=== PATIENT | male | born 1950 | race Caucasian/White ===

== ENCOUNTER → 2025-01-19 | Outpatient (CLI) | payer MEDICARE, SELFPAY ==
[2025-01-19 19:14] LABS: PSA,Total- Diagnostic 9.22 ng/mL (0.00-4.00)
[2025-01-21 13:08] LABS: PSA, Free 1.57 ng/mL; PSA, Free % 15.4 % (.); PSA, Total Ultrasensitive 10.200 ng/mL (0.000-4.000)
== END | disposition home or self-care (01) ==
LOC: LAB 16:08
PROVIDERS: PCP Internal Medicine Infectious Disease; Referring Provider Nurse Practitioner; Visit Provider Nurse Practitioner
DX: R97.20 Elevated prostate specific antigen [PSA] (principal)
CPT/HCPCS: 36415; 84153; 84154

== ENCOUNTER → 2025-02-12 | Outpatient (CLI) | payer MEDICARE, SELFPAY ==
--- NOTE | 2025-02-12 07:47 | MRI_ITS ---
PROCEDURE: PELVIS W/WO CONTRAST, 02/12/2025 REASON FOR EXAM: ELEVATED PSA. PSA 9.22 on 01/19/2025 per technologist report. TECHNIQUE: Multisequence multiplanar MRI pelvis was performed with and without IV contrast. IV Contrast: 14 mL Clariscan COMPARISON: None FINDINGS: Variable overall mild motion limitation. Prostate size: 5.2 x 3.7 x 5.1 cm, estimated volume 51.0 mL. Per the above provided PSA, PSA density is 0.181 ng/mL. Transition zone: PI-RADS 2 findings. Peripheral Zone: Fairly prominent background changes favorable for prostatitis making delineation of additional discrete lesions on T2 somewhat challenging: *Lesion 1: RIGHT mid apical posteromedial peripheral zone, 0.6 cm (series 12, image 21).. *T2 score: 3. *DWI score: 3. *DCE: Positive. *Overall PI-RADS: 4. *Extracapsular extension:Capsular abutment without gross extracapsular extension. Neurovascular bundles: Unremarkable. Seminal vesicles: Unremarkable. Bladder: Underdistended and suboptimally evaluated. Appearance suggestive of chronic bladder outlet obstruction. Mild mass-effect by the enlarged prostate with slight intraluminal protrusion of exophytic transition zone parenchyma. Lymph nodes: Unremarkable. Bones: No destructive or frankly suspicious bony lesions identified on nondedicated evaluation. Other: Diverticulosis. Trace to small bilateral hydroceles. Bilateral presumed epididymal cysts. MRI/Pelvis W/WO Contrast IMPRESSION: 1. 0.6 cm PI-RADS 4 lesion in the RIGHT mid to apical posteromedial peripheral zone. Capsular abutment without gross extracapsular extension. 2. No overt pelvic lymphadenopathy. 3. Additional description as above. [facility]
--- OUTSIDE RECORDS SUMMARY | 2025-02-12 08:03 | XMS RPT_ITS | CCD ---
Author Organization [facility] Care Team Providers Care Director Of Vocational Guidance Name Role Phone Cody QUEZADA Admitting Unavailable Cody QUEZADA HENOK Primary Care Unavailable Cody QUEZADA Attending Unavailable MIGUEL A SALCEDO MD Consulting Unavailable PROVIDER, UNKNOWN Consulting Unavailable PROVIDER, UNKNOWN Consulting Unavailable PROVIDER, UNKNOWN Consulting Unavailable MIGUEL A SALCEDO MD Admitting Unavailable MIGUEL A SALCEDO MD Primary Care Unavailable MIGUEL A SALCEDO MD Consulting Unavailable MIGUEL A SALCEDO MD Attending Unavailable PROVIDER, UNKNOWN Consulting Unavailable PROVIDER, UNKNOWN Consulting Unavailable PROVIDER, UNKNOWN Consulting Unavailable Denisse FERREIRA, Dr. Perez Primary Care Provider [place]Ni Attending Provider [phone] [place] Referring Provider Miguel A Salcedo Primary Care Unavailable Ni Beck Attending Unavailable Ni Beck Referring Unavailable Lai Quezada Referring Unavailable Miguel A Salcedo Primary Care Unavailable Lai Quezada Attending Unavailable Problems Problem Classification Problem Date Documented Da te Episodic/Chronic Disorders of lipid metabolism (1 source) Pure hypercholesterole magda, unspecified; Translations: [Pure hypercholesterole magda, unspecified] Onset: 12-10-2024 Chronic Other screening for suspected conditions (not mental disorders or infectious disease) (6 sources) Elevated prostate specific antigen [PSA]; Translations: [Elevated prostate specific antigen [PSA]] Onset: 05-25-2024 Episodic Results Test Name Value Interpretation Reference Range Facil ity PSA Total+%Freeon 01-21-2025 PSA, FREE 1.57 ng/mL Normal N/A [facility] Comment on above: Result Comment: Vale PERSAUD methodology. Performed By: #### L 3110.0500, L501.9940 #### [facility] [address] [place], [address] (458) PSA, FREE % 15.4 Normal . [facility] Comment on above: Result Comment: The table below lists the probability of prostate cancer for men with non-suspicious CHRIS results and total PSA between 4 and 10 ng/mL, by patient age (Vasile et al, MICHELE 1998, 279:1542). % Free PSA 50-64 yr 65-75 yr 0.00-10.00% 56% 55% 10.01-15.00% 24% 35% 15.01-20.00% 17% 23% 20.01-25.00% 10% 20% >25.00% 5% 9% Please note: Vasile et al did not make specific recommendations regarding the use of percent free PSA for any other population of men. Performed at: [address] [id number] Marketing Intelligence Manager: Billy Cardenas PhD, Phone: [phone] Performed By: #### L 3110.0500, L501.9940 #### [facility] [address] [place], [address] (821) PSA, TOTAL ULTR 10.200 ng/mL Abnormal 0.000-4.000 [facility] Comment on above: Result Comment: Vale PERSAUD methodology. According to the [place] [employer], Serum PSA should decrease and remain at undetectable levels after radical prostatectomy. The AUA defines biochemical recurrence as an initial PSA value 0.200 ng/mL or greater followed by a subsequent confirmatory PSA value 0.200 ng/mL or greater. Values obtained with different assay methods or kits cannot be used interchangeably. Results cannot be interpreted as absolute evidence of the presence or absence of malignant disease. Performed By: #### L 3110.0500, L501.9940 #### [facility] [address] [place], [place], [phone] (092) PSA,Total- Diagnosticon 12-26 PSA, DIAGNOSTIC 9.22 ng/mL High 0.00-4.00 [facility] Comment on above: Result Comment: This test was performed using the [employer] tPSA method. Measured values of a patient??sample can vary depending on the testing procedure used. PSA values determined on patient samples by different testing procedures cannot be used interchangeably. If there is a change in PSA assays while monitoring therapy, sequential testing should be performed to confirm baseline values. Performed By: #### L 3110.0500, L501.9940 #### [facility] [address] [place], [address] Serum or plasma free prostat e specific antigen (PSA)/total PSA mass ratioOrdered By: Ni Beck on 01-19-2025 Free PSA/Total PSA [Mass fraction] 15.4 % . [facility] Comment on above: The table below list s the probability of prostate cancer formen with non-suspicious CHRIS results and total PSA between4 and 10 ng/mL, by patient age (Vasile et al, MICHELE 1998,279:1542). % Free PSA 50-64 yr 65-75 yr 0.00-10.00% 56% 55% 10.01-15.00% 24% 35% 15.01-20.00% 17% 23% 20.01-25.00% 10% 20% >25.00% 5% 9%Please note: Vasile et al did not make specific recommendations regarding the use of percent free PSA for any other population of men.Performed at: [facility] [id number] Director: Billy Cardenas PhD, Phone: [phone] CBC (NO DIFF)on 12-10-2024 CBC panel Auto (Bld) Normal [facility] Comment on above: Result Comment: CBC( WITHOUT DIFFERENTIAL) Performed By: #### 2 80744 #### [facility],[address] [place] [address] 32393 Erythrocyte distribution width (RBC) [Ratio] 16.5 % High 12.0 - 15.6 [facility] Comment on above: Performed By: #### 2 02444 #### [facility],[address] [place] [address] 09057 Hematocrit (Bld) [Volume fraction] 35.7 % Low 40.0 - 52.0 [facility] Comment on above: Performed By: #### 2 81035 #### [facility],[address] [place] [address] 63444 Hemoglobin (Bld) [Mass/Vol] 11.9 g/dL Low 13.0 - 17.5 [facility] Comment on above: Performed By: #### 2 60457 #### [facility],[address] [place] [address] 22427 MCH (RBC) [Entitic mass] 27 pg Normal 27 - 33 [facility] Comment on above: Performed By: #### 2 24142 #### [facility],[address] [place] [address] 12279 MCHC 33 X10 3 Normal 32 - 36 [facility] Comment on above: Performed By: #### 2 56851 #### [facility],[address] [place] [address] 50849 MCV (RBC) [Entitic vol] 81 fL Normal 81 - 98 [facility] Comment on above: Performed By: #### 2 84390 #### [facility],[address] [place] [address] 81210 PLATELET 423 x10EE3/UL Normal 150 - 450 [facility] Comment on above: Performed By: #### 2 62985 #### [facility],[address] [place] [address] 49373 Platelet mean volume (Bld) [Entitic vol] 7.0 fL Normal 6.4 - 10.5 [facility] Comment on above: Performed By: #### 2 48540 #### [facility],[address] [place] [address] 86196 RBC 4.40 x 10EE6/UL Low 4.50 - 6.00 [facility] Comment on above: Performed By: #### 2 25416 #### [facility],[address] [place] [address] 50493 WBC 5.5 x 10EE3/UL Normal 4.5 - 10.8 [facility] Comment on above: Performed By: #### 2 61347 #### [facility],[address] [place] [address] 54917 CMP with eGFRon 12-10-2024 AGE 74 years Normal [facility] Comment on above: Performed By: #### 2 52602 #### [facility],[address] [place] [address] Albumin [Mass/Vol] 3.7 g/dL Normal 3.4 - 5.0 [facility] Comment on above: Performed By: #### 2 29285 #### [facility],[address] [place] [address] Albumin/Globulin [Mass ratio] 1.1 {ratio} Normal 0.9 - 1.6 [facility] Comment on above: Performed By: #### 2 74261 #### [facility],[address] [place], [place] [id number] ALK PHOS 47 U/L Normal 46 - 116 [facility] Comment on above: Performed By: #### 2 11757 #### [facility],[address] [place] [address] 95974 ALT [Catalytic activity/Vol] 28 U/L Normal 16 - 63 [facility] Comment on above: Performed By: #### 2 96889 #### [facility],[address] [place] [address] 51283 Anion gap [Moles/Vol] 12 mmol/L Normal 10 - 20 [facility] Comment on above: Performed By: #### 2 96545 #### [facility],[address] [place] [address] 38777 AST [Catalytic activity/Vol] 23 U/L Normal 15 - 37 [facility] Comment on above: Performed By: #### 2 09856 #### [facility],[address] [place] [address] 57242 B/C RATIO 18 ratio Normal 0 - 30 [facility] Comment on above: Performed By: #### 2 58253 #### [facility],[address] [place] [address] 89336 Bilirubin [Mass/Vol] 0.7 mg/dL Normal 0.2 - 1.0 [facility] Comment on above: Performed By: #### 2 16729 #### [facility],[address] [place] [address] 04825 Calcium [Mass/Vol] 8.4 mg/dL Low 8.5 - 10.1 [facility] Comment on above: Performed By: #### 2 58353 #### [facility],[address] [place] [address] 19304 Chloride [Moles/Vol] 105 mmol/L Normal 98 - 107 [facility] Comment on above: Performed By: #### 2 60904 #### [facility],[address] [place], [place] [id number] CMP with eGFR Normal [facility] Comment on above: Result Comment: COMP REHENSIVE METABOLIC PANEL Performed By: #### 2 72400 #### [facility],[address] [place] [address] 72838 CO2 [Moles/Vol] 26.0 mmol/L Normal 21.0 - 32.0 [facility] Comment on above: Performed By: #### 2 26387 #### [facility],[address] [place] [address] 86988 Creatinine [Mass/Vol] 1.11 mg/dL Normal 0.70 - 1.30 [facility] Comment on above: Performed By: #### 2 37384 #### [facility],[address] [place] [address] 89637 GFR/1.73 sq M.predicted among non-blacks MDRD (S/P/Bld) [Vol rate/Area] mL/min/{1.73_m2} Normal 60 - 999 [facility] Comment on above: Performed By: #### 2 91235 #### [facility],[address] [place] [address] 19900 Result Comment: ACCO RDING TO THE NATIONAL KIDNEY DISEASE EDUCATION PROGRAM(NKDE), A NORMAL eGFR IS A VALUE GREATER THAN OR EQUAL TO 60 ML/MIN/1.73 SQ METERS. CHRONIC KIDNEY DISEASE: <60mL/MIN/1.73 SQ METERS KIDNEY FAILURE: <15mL/MIN/1.73 SQ METERS THIS TEST SHOULD ONLY BE USED FOR PATIENTS 18 YEARS OF AGE AND OLDER. Globulin (S) [Mass/Vol] 3.4 g/dL Normal 1.5 - 3.8 [facility] Comment on above: Performed By: #### 2 63365 #### [facility],[address] [place] [address] 42249 Glucose [Mass/Vol] 99 mg/dL Normal 74 - 106 [facility] Comment on above: Performed By: #### 2 23576 #### [facility],[address] [place], [place] [id number] Potassium [Moles/Vol] 4.4 mmol/L Normal 3.5 - 5.1 [facility] Comment on above: Performed By: #### 2 08821 #### [facility],[address] [place], [place] [id number] Protein [Mass/Vol] 7.1 g/dL Normal 6.4 - 8.2 [facility] Comment on above: Performed By: #### 2 72889 #### [facility],[address] [place] [address] 15866 Sodium [Moles/Vol] 139 mmol/L Normal 136 - 145 [facility] Comment on above: Performed By: #### 2 87425 #### [facility],[address] [place] [address] 05476 Urea nitrogen [Mass/Vol] 20 mg/dL High 7 - 18 [facility] Comment on above: Performed By: #### 2 39041 #### [facility],[address] [place], [place] [address] HEMOGLOBIN A1C (POM)on 12-10 Glucose [Mass/Vol] 111.2 mg/dL High 0.0 - 0.0 [facility] Comment on above: Result Comment: BLDo HEMOGLOBIN A1C REFERENCE RANGESBLDo Suggested Diagnosis HbA1c(%) HbA1C (mmol/mol Diabetic >/=6.5 >/=48 Prediabetes 5.7 - 6.4 39 - 47 Normal <5.7 <39 Performed By: #### 2 64705 #### [facility],[address] [place] [address] 01594 HbA1c (Bld) [Mass fraction] 5.5 % Normal 0.0 - 6.5 [facility] Comment on above: Performed By: #### 2 40148 #### [facility],[address] [place] [address] 22406 LIPID PROFILEon 12-10-2024 Cholesterol [Mass/Vol] 233 mg/dL Normal 0 - 240 [facility] Comment on above: Performed By: #### 2 31647 #### [facility],[address] [place] [address] 49136 Cholesterol in HDL [Mass/Vol] 80 mg/dL High 40 - 60 [facility] Comment on above: Performed By: #### 2 71613 #### [facility],[address] [place] [address] 88436 Cholesterol in LDL [Mass/Vol] 142 mg/dL High 0 - 129 [facility] Comment on above: Performed By: #### 2 66526 #### [facility],[address] [place] [address] 24064 Cholesterol.total/C holesterol in HDL [Mass ratio] 2.9 {ratio} Normal 0.0 - 5.0 [facility] Comment on above: Performed By: #### 2 90027 #### [facility],[address] [place] [address] 40879 Lipid 1996 panel Normal [facility] Comment on above: Result Comment: LIPI D PROFILE Performed By: #### 2 17111 #### [facility],[address] [place] [address] 24519 Triglyceride [Mass/Vol] 56 mg/dL Normal 0 - 150 [facility] Comment on above: Performed By: #### 2 45926 #### [facility],[address] [place] [address] 99827 TSHon 12-10-2024 TSH Qn 3.11 m[IU]/L Normal 0.35 - 3.74 [facility] Comment on above: Performed By: #### 2 47423 #### [facility],[address] [place] [address] 06258 URINALYSISon 12-10-2024 Bilirubin Ql (U) Negative Normal NORMAL: NEGATIVE [facility] Comment on above: Performed By: #### 2 44487 #### [facility],[address] [place] [address] 53194 Clarity (U) clear Normal NORMAL: CLEAR [facility] Comment on above: Performed By: #### 2 01789 #### [facility],[address] [place] [address] 26845 Color (U) yellow Normal NORMAL: YELLOW [facility] Comment on above: Performed By: #### 2 82895 #### [facility],[address] [place] [address] 21436 Glucose Ql (U) NORM Normal NORMAL: NORMAL [facility] Comment on above: Performed By: #### 2 29626 #### [facility],[address] [place] [address] 03203 Hemoglobin Ql (U) Negative Normal NORMAL: NEGATIVE [facility] Comment on above: Performed By: #### 2 71854 #### [facility],[address] [place] [address] 89855 Ketone Negative Normal NORMAL: NEGATIVE [facility] Comment on above: Performed By: #### 2 86000 #### [facility],[address] [place] [address] Leukocytes Negative Normal NORMAL: NEGATIVE [facility] Comment on above: Performed By: #### 2 19995 #### [facility],[address] [place] [address] Nitrite Ql (U) Negative Normal NORMAL: NEGATIVE [facility] Comment on above: Performed By: #### 2 15122 #### [facility],[address] [place] [address] pH (U) 6.5 [pH] Normal NORMAL: 5.0-8.0 [facility] Comment on above: Performed By: #### 2 69902 #### [facility],[address] [place] [address] Protein Ql (U) Negative Normal NORMAL: NEGATIVE [facility] Comment on above: Performed By: #### 2 93785 #### [facility],[address] [place] [address] Sp Donie 1.015 Normal NORMAL: 1.010-1.030 [facility] Comment on above: Performed By: #### 2 56109 #### [facility],[address] [place] [address] Specimen Type R Normal [facility] Comment on above: Performed By: #### 2 16002 #### [facility],[address] [place] [address] Urinalysis dipstick W Reflex Microscopic panel (U) NOT INDICATED Normal [facility] Comment on above: Performed By: #### 2 59042 #### [facility],[address] [place] [address] Urobilinog NORM Normal NORMAL: NORMAL [facility] Comment on above: Performed By: #### 2 26275 #### [facility],[address] [place] [address] Encounters Encounter Date Encounter Type Care Provider Facility Start: 02-12-2025 ambulatory Lai Howe lity:[facility] Start: 01-19-2025 End: 01-19-[address] Miguel A Salcedo MD Work Phone: -Laboratory Start: 01-19-2025 End: 01-19-2025 Patient encounter procedure Ni Beck -Laboratory Work Phone: Start: 01-19-2025 End: 01-19-2025 ambulatory Miguel A Salcedo Facility:[facility] Start: 12-10-2024 End: 12-10-2024 ambulatory MIGUEL A SALCEDO [facility] Start: 05-25-2024 End: 05-25-2024 ambulatory Cody HENOK QUEZADA [facility] Procedures Date Procedure Procedure Detail Performing Clinician Start: 01-19-2025 Assay of prostate sp ecific antigen total Dr. Miguel A Salcedo MD Work Phone: Comment on above: This test was perfor med using the [facility] [employer] tPSA method. Measured values of a patient sample can vary depending on the testing procedure used. PSA values determined on patient samples by different testing procedures cannot be used interchangeably. If there is a change in PSA assays while monitoring therapy, sequential testing should be performed to confirm baseline values. Start: 01-19-2025 Free prostate specif ic antigen level Dr. Miguel A Salcedo MD Work Phone: Comment on above: [employer]. Start: 01-19-2025 Prostate specific an tigen measurement Dr. Miguel A Salcedo MD Work Phone: Comment on above: [facility] [employer] methodol [employer].According to the [place] [employer], Serum PSAshould decrease and remain at undetectable levels afterradical prostatectomy. The AUA defines biochemicalrecurrence as an initial PSA value 0.200 ng/mL or greaterfollowed by a subsequent confirmatory PSA value 0.200 ng/mLor greater. Values obtained with different assay methods orkits cannot be used interchangeably. Results cannot beinterpreted as absolute evidence of the presence or absenceof malignant disease. Start: 12-10-2024 PSA screening TORITO QUEZADA Comment on above: Performed By: #### 2 43990 #### [facility],[address] [place] [address] Start: 12-10-2024 Urinalysis NA DAMIEN Comment on above: Result Comment: URIN ALYSIS Performed By: #### 2 52020 #### [facility],[address] [place], [place] [id number] Start: 05-25-2024 PSA screening NA DAMIEN Comment on above: Performed By: #### 2 86041 #### [facility],[address] [place], [place] [id number] Payers Date Payer Category Payer Medicare [id number] 2025 Self-pay 1950 Unknown [id number] [id number] 1950 Unknown [id number] Unknown [id number] Unknown [id number] [id number] Social History Date Type Detail Facility Tobacco smoking stat [facility] Unknown if ever smoked [facility] Work Phone: Start: 1950 Sex Assigned At Male [facility] Evaluation note Note Date & Type Note Facility Evaluation note No assessment information availa ble [facility] Work Phone: Reason for referral (narrative) Note Date & Type Note Facility Reason for referral (narrative) No reason for referral information available [facility] Work Phone: Summary Purpose Family History No Family History Records FoundNo Family History Records Found Advance Directives No Advanced Directives Records FoundNo Advanced Directives Records Found Additional Source Comments (unrecognized sect ion and content) No Status Records FoundNo Status Records Found INFORMATION SOURCE (unrecogn ized section and content) DATE CREATED [facility] DATE CREATED AUTHOR AUTHOR'S ORGANIZ ATION 02/04/2025 [facility] Care Teams (unrecognized sec tion and content) Team Status: Active Member Role/Relationship Status Dates Dr. Miguel A Salcedo MD Primary Care Provider Active Team Status: Inactive Member Role/Relationship Status Dates Dr. Miguel A Salcedo MD Primary Care Provider Active Start: January 19, 2025 End: January 19, 2025 Ni Salinas Attending Provider Active Start : January 19, 2025 End: January 19, 2025 Ni Worrelling Referring Provider Active Start : January 19, 2025 End: January 19, 2025 Goals (unrecognized section and content) Goals may be documented in a n alternate section FOR RECORDS PERTAINING TO PATIENTS WHO ARE OR HAVE BEEN ENROLLED IN A CHEMICAL DEPENDENCY/SUBSTANCEABUSE PROGRAM, SOME INFORMATION MAY BE OMITTED. This clinical summary was aggregated from multiple sources. Caution should be exercised in using it in the provision of clinical care. This summary normalizes information from multiple sources, and as a consequence, information in this document may materially change the coding, format and clinical context of patient data. In addition, data may be omitted in some cases. CLINICAL DECISIONS SHOULD BE BASED ON THE PRIMARY CLINICAL RECORDS. [email or web address] [facility]. provides no warranty or guarantee of the accuracy or completeness of information in this document.
== END | disposition home or self-care (01) ==
LOC: OPMRI 07:44
PROVIDERS: PCP Internal Medicine Infectious Disease; Referring Provider Urology; Visit Provider Urology
DX: R97.20 Elevated prostate specific antigen [PSA] (principal)
CPT/HCPCS: 72197

== ENCOUNTER → 2025-03-18 | Outpatient (CLI) | payer MEDICARE, SELFPAY ==
--- NOTE | 2025-03-18 13:00 | PROSBIL_PTH ---
PATIENT: ARNAUD HESTER LOC: [facility] U#:[id number] AGE/SX: 75/M ROOM: RE03/18/[address]: Dr. Lai Milton MD : 1950 BED: DIS: 03/18/2025 SPEC #: [id number] RECD: 03/18/25 15:00 STATUS: SHAKIRA JARET #: [id number] GWEN: 03/18/25 13:[address]: Lai Milton DEPT: SURGICAL PATHOLOGY RECD BY: Minesh Zarate ENTERED: 03/19/25 10:23 SP TYPE: PROST BX TED DR: Dr. Chris Salcedo MD Tissues: A - PROSTATE RIGHT B - PROSTATE RIGHT C - PROSTATE RIGHT Procedures: PROSTATE BX Immunohistochemical Stains HEADER OPERATION: Prostate biopsy PRE-OP DIAGNOSIS: Elevated PSA TISSUE SUBMITTED: A - Right apex, B - Right mid, C - Right base, D - Left apex, E - Left mid, F - Left base MICROSCOPIC DIAGNOSIS A. Prostate, right, apex, biopsy: - Focal atypical small acinar proliferation, negative for malignancy. - PIN4 IHC supports the histologic impression. B. Prostate, right, mid, biopsy: - Focal atypical acini, negative for malignancy. - PIN4 IHC supports the histologic impression. C. Prostate, right, base, biopsy: - Focal atypical acini, negative for malignancy. - PIN4 IHC supports the histologic impression. MICROSCOPIC DESCRIPTION Slides are reviewed. All matched controls reacted appropriately. These tests were developed and their performance characteristics determined by [facility]. They may not have been cleared or approved by the [place] Food and Drug Administration. The FDA has determined that such clearance or approval is not necessary. The above immunohistochemical markers and/or special?stains have been reviewed by the Pathologist. GROSS DESCRIPTION Received in 3 formalin containers labeled with the patient's name and date of . Designated as: A. RA are 3 gerard tissue cores, 0.7 cm to 1.7 cm in length by 0.1 cm in diameter. Entirely submitted in 1 cassette. B. RM are 2 gerard tissue cores, 1.5 cm and 1.8 cm in length by 0.1 cm in diameter. Entirely submitted in 1 cassette. C. RB are 2 gerard tissue cores, 1.1 cm and 1.3 cm in length by 0.1 cm in diameter. Entirely submitted in 1 cassette. OR 03/19/2025 CPT:[id number]
== END | disposition home or self-care (01) ==
LOC: LABSPEC 14:39
PROVIDERS: PCP Internal Medicine Infectious Disease; Referring Provider Urology; Visit Provider Urology
DX: R97.20 Elevated prostate specific antigen [PSA] (principal)
CPT/HCPCS: 88305; 88342; G0416